=== PATIENT | female | born 1975 | race Caucasian/White ===

== ENCOUNTER 2018-07-06 09:11 | Day surgery (SDC) | payer MEDICARE ==
[2018-07-06] MEDS ORDERED: Depo-Medrol 40 MG/ML IM ONE (09:12)
[2018-07-06] MEDS ORDERED: DIPRIVAN 200 MG/20 ML IV ONE (09:12)
[2018-07-06] MEDS ORDERED: Xylocaine-Mpf 2% 5 Ml Vial IJ ONE (09:12)
--- NOTE | 2018-07-06 12:13 | XRAY ---
Indication: T9-T12 MBB. Intraoperative fluoroscopy was provided for 17 seconds. Single digital spot image submitted for interpretation demonstrates bilateral posterior spinal needle tips projecting over the expected course of the T9-T12 nerve roots. Correlate with intraoperative findings/report.
--- NOTE | 2018-07-06 12:15 | XRAY ---
17 seconds fluoroscopy time in surgery for T9-T12 MBB.
[2018-07-06] MEDS ORDERED: Lactated Ringers 1,000 ML IV ONE (14:30)
== END 2018-07-06 11:30 | disposition home or self-care (01) ==
LOC: SDC-PAIN 09:11
PROVIDERS: ATTEND Psychiatry & Neurology Pain Medicine
DX: M47.814 Spondylosis without myelopathy or radiculopathy, thoracic region (principal)
CPT/HCPCS: 64490; 64491; 64492; 72020; 77003; 82962; J1030; J2704

== ENCOUNTER 2018-08-03 08:19 | Day surgery (SDC) | payer MEDICARE ==
[2018-08-03] MEDS ORDERED: Ketamine HCl 50 MG/ML IJ ONE (08:20)
[2018-08-03] MEDS ORDERED: DIPRIVAN 200 MG/20 ML IV ONE (08:20)
[2018-08-03] MEDS ORDERED: Xylocaine 1% Vial 30 ML PF IJ ONE (08:20)
[2018-08-03] MEDS ORDERED: Depo-Medrol 40 MG/ML IM ONE (08:20)
[2018-08-03] MEDS ORDERED: Xylocaine-Mpf 2% 5 Ml Vial IJ ONE (08:20)
--- NOTE | 2018-08-03 11:50 | XRAY ---
Indication: Bilateral T9-T12 MBB. Intraoperative fluoroscopy was provided for 19 seconds. Single digital spot image submitted for interpretation demonstrates posterior spinal needle tips projecting over the expected course of the left and right T9-T12 nerve roots. Correlate with intraoperative findings/report.
--- NOTE | 2018-08-03 11:57 | XRAY ---
19 seconds fluoroscopy time in surgery for T9-T12 MBB.
[2018-08-03] MEDS ORDERED: Lactated Ringers 2,000 ML IV ONE (14:26)
== END 2018-08-03 10:07 | disposition home or self-care (01) ==
LOC: SDC-PAIN 08:19
PROVIDERS: ATTEND Psychiatry & Neurology Pain Medicine
DX: M47.814 Spondylosis without myelopathy or radiculopathy, thoracic region (principal); E11.9 Type 2 diabetes mellitus without complications; J45.909 Unspecified asthma, uncomplicated; Z79.899 Other long term (current) drug therapy
CPT/HCPCS: 64490; 64491; 64492; 72020; 77002; 82962; J1030; J2001; J2704

== ENCOUNTER 2018-08-24 08:05 | Day surgery (SDC) | payer MEDICARE ==
[2018-08-24] MEDS ORDERED: Ketamine HCl 50 MG/ML IV ONE (08:06)
[2018-08-24] MEDS ORDERED: Depo-Medrol 40 MG/ML IM ONE (08:06)
[2018-08-24] MEDS ORDERED: DIPRIVAN 200 MG/20 ML IV ONE (08:06)
[2018-08-24] MEDS ORDERED: Marcaine 0.5% SDV 10 ML IJ ONE (08:06)
[2018-08-24] MEDS ORDERED: Xylocaine 1% Vial 30 ML PF IJ ONE ×2 (08:06)
[2018-08-24] MEDS ORDERED: Lactated Ringers 1,000 ML IV ONE ×2 (09:39→14:27)
--- NOTE | 2018-08-24 11:27 | XRAY ---
Indication: Left T9-T10 RFA. Intraoperative fluoroscopy was provided for 32 seconds. 2 digital spot images submitted for interpretation demonstrates posterior spinal needle tips projecting over the expected course of the left T9-T12 nerve roots. Correlate with intraoperative findings/report.
--- NOTE | 2018-08-24 11:29 | XRAY ---
32 seconds fluoroscopy time in surgery for T9-T12 left RFA..
== END 2018-08-24 10:13 | disposition home or self-care (01) ==
LOC: SDC-PAIN 08:05
PROVIDERS: ATTEND Psychiatry & Neurology Pain Medicine
DX: M47.814 Spondylosis without myelopathy or radiculopathy, thoracic region (principal); E11.9 Type 2 diabetes mellitus without complications; Z79.899 Other long term (current) drug therapy
CPT/HCPCS: 72100; 77002; J1030; J2001; J2704

== ENCOUNTER 2018-09-28 09:35 | Day surgery (SDC) | payer MEDICARE ==
[2018-09-28] MEDS ORDERED: LIDOCAINE HCL 2% 100 MG/5 ML IJ ONE (09:36)
[2018-09-28] MEDS ORDERED: Depo-Medrol 40 MG/ML IM ONE (09:36)
[2018-09-28] MEDS ORDERED: Xylocaine 1% Vial 30 ML PF IJ ONE (09:36)
[2018-09-28] MEDS ORDERED: Ketamine HCl 50 MG/ML IJ ONE (09:36)
[2018-09-28] MEDS ORDERED: DIPRIVAN 200 MG/20 ML IV ONE (09:36)
[2018-09-28] MEDS ORDERED: Marcaine 0.5% SDV 10 ML IJ ONE (09:36)
--- NOTE | 2018-09-28 12:10 | XRAY ---
20 seconds fluoroscopy time in surgery for right T9-T12 RFA.
--- NOTE | 2018-09-28 12:17 | XRAY ---
Indication: Right T9-T12 RFA. Intraoperative fluoroscopy was provided for 20 seconds. 2 digital spot images submitted for interpretation demonstrates posterior needle tips along the expected course of the right T9-T12 nerve roots. Correlate with intraoperative findings/report.
[2018-09-28] MEDS ORDERED: Lactated Ringers 1,000 ML IV ONE (17:10)
== END 2018-09-28 11:35 | disposition home or self-care (01) ==
LOC: SDC-PAIN 09:35
PROVIDERS: ATTEND Psychiatry & Neurology Pain Medicine
DX: M47.814 Spondylosis without myelopathy or radiculopathy, thoracic region (principal); Z79.899 Other long term (current) drug therapy; E11.9 Type 2 diabetes mellitus without complications; F41.9 Anxiety disorder, unspecified; J45.909 Unspecified asthma, uncomplicated; F32.9 Major depressive disorder, single episode, unspecified
CPT/HCPCS: 64633; 64634; 72072; 77002; 82962; J1030; J2001; J2704

== ENCOUNTER 2019-01-11 08:51 | Day surgery (SDC) | payer MEDICARE ==
[2019-01-11] MEDS ORDERED: Depo-Medrol 40 MG/ML IM ONE (08:52)
[2019-01-11] MEDS ORDERED: Xylocaine-Mpf 2% 5 Ml Vial IJ ONE (08:52)
[2019-01-11] MEDS ORDERED: DIPRIVAN 200 MG/20 ML IV ONE (10:14)
[2019-01-11] MEDS ORDERED: Ketamine HCl 50 MG/ML ONE (10:14)
[2019-01-11] MEDS ORDERED: Lactated Ringers 1,000 ML IV ONE (11:16)
--- NOTE | 2019-01-11 16:34 | XRAY ---
14 seconds fluoroscopy time in surgery for bilateral L4-S1 MBB.
--- NOTE | 2019-01-13 10:18 | XRAY ---
Indication: Bilateral L4-S1 MBB. Intraoperative fluoroscopy was provided for 14 seconds. Single digital spot image submitted for interpretation demonstrates posterior needle tips projecting over the expected course of the left and right L4-S1 nerve roots. Correlate with intraoperative findings/report.
== END 2019-01-11 10:36 | disposition home or self-care (01) ==
LOC: SDC-PAIN 08:51
PROVIDERS: ATTEND Psychiatry & Neurology Pain Medicine
DX: M47.816 Spondylosis without myelopathy or radiculopathy, lumbar region (principal); E11.9 Type 2 diabetes mellitus without complications; F41.8 Other specified anxiety disorders; Z79.899 Other long term (current) drug therapy
CPT/HCPCS: 64494; 64495; 72020; 77002; 82962; J1030; J2704

== ENCOUNTER 2019-02-08 09:10 | Day surgery (SDC) | payer MEDICARE ==
[2019-02-08] MEDS ORDERED: Marcaine 0.5% SDV 10 ML IJ ONE (09:11)
[2019-02-08] MEDS ORDERED: Depo-Medrol 40 MG/ML IM ONE (09:11)
[2019-02-08] MEDS ORDERED: DIPRIVAN 200 MG/20 ML IV ONE (10:29)
[2019-02-08] MEDS ORDERED: Ketamine HCl 50 MG/ML ONE (10:30)
--- NOTE | 2019-02-08 12:13 | XRAY ---
Indication: Bilateral L4-S1 MBB. Intraoperative fluoroscopy was provided for 7 seconds. Single digital spot image submitted for interpretation demonstrates posterior needle tips projecting over the expected course of the left and right L4-S1 nerve roots. Correlate with intraoperative findings/report.
--- NOTE | 2019-02-08 13:04 | XRAY ---
7 seconds fluoroscopy time in surgery for bilateral L4-S1 MBB.
[2019-02-08] MEDS ORDERED: Lactated Ringers 1,000 ML IV ONE (13:20)
== END 2019-02-08 10:53 | disposition home or self-care (01) ==
LOC: SDC-PAIN 09:10
PROVIDERS: ATTEND Psychiatry & Neurology Pain Medicine
DX: M47.816 Spondylosis without myelopathy or radiculopathy, lumbar region (principal); E11.9 Type 2 diabetes mellitus without complications; F41.8 Other specified anxiety disorders; J45.909 Unspecified asthma, uncomplicated; Z79.899 Other long term (current) drug therapy
CPT/HCPCS: 64493; 64494; 72020; 77002; J1030; J2704

== ENCOUNTER 2019-03-08 08:12 | Day surgery (SDC) | payer MEDICARE ==
[2019-03-08] MEDS ORDERED: Marcaine 0.5% SDV 10 ML IJ ONE (08:13)
[2019-03-08] MEDS ORDERED: Depo-Medrol 40 MG/ML IM ONE (08:13)
[2019-03-08] MEDS ORDERED: Xylocaine 1% Vial 30 ML PF IJ ONE (08:13)
[2019-03-08] MEDS ORDERED: DIPRIVAN 200 MG/20 ML IV ONE (09:21)
[2019-03-08] MEDS ORDERED: Ketamine HCl 50 MG/ML ONE (09:21)
[2019-03-08] MEDS ORDERED: Lactated Ringers 1,000 ML IV ONE (13:56)
--- NOTE | 2019-03-08 16:26 | XRAY ---
10 seconds fluoroscopy time in surgery for left L4-S1 RFA.
--- NOTE | 2019-03-09 06:23 | XRAY ---
Indication: Left L4-S1 RFA. Intraoperative fluoroscopy was utilized for 10 seconds. AP and lateral digital spot films reveal a posterior needle tips projected over the expected course of the left L3, L4, and L5 nerve roots. Correlate with intraoperative findings/report.
== END 2019-03-08 09:55 | disposition home or self-care (01) ==
LOC: SDC-PAIN 08:12
PROVIDERS: ATTEND Psychiatry & Neurology Pain Medicine
DX: M47.816 Spondylosis without myelopathy or radiculopathy, lumbar region (principal); E11.9 Type 2 diabetes mellitus without complications; J45.909 Unspecified asthma, uncomplicated; F41.8 Other specified anxiety disorders; Z79.899 Other long term (current) drug therapy
CPT/HCPCS: 64635; 64636; 72100; 77002; 82962; J1030; J2001; J2704; Q9966

== ENCOUNTER 2019-04-05 08:12 | Day surgery (SDC) | payer MEDICARE ==
[2019-04-05] MEDS ORDERED: Depo-Medrol 40 MG/ML IM ONE (08:13)
[2019-04-05] MEDS ORDERED: Xylocaine 1% Vial 30 ML PF IJ ONE (08:13)
[2019-04-05] MEDS ORDERED: Marcaine 0.5% SDV 10 ML IJ ONE (08:13)
[2019-04-05] MEDS ORDERED: Ketamine HCl 50 MG/ML ONE (08:53)
[2019-04-05] MEDS ORDERED: DIPRIVAN 200 MG/20 ML IV ONE (08:53)
--- NOTE | 2019-04-05 10:21 | XRAY ---
Indication: Right L4-S1 RFA. Intraoperative fluoroscopy was provided for 17 seconds. 4 digital spot images submitted for interpretation demonstrates posterior needle tips projecting over the expected course of the right L4-S1 nerve roots. Correlate with intraoperative findings/report.
--- NOTE | 2019-04-05 12:30 | XRAY ---
17 seconds fluoroscopy time in surgery for left L4-S1 RFA.
[2019-04-05] MEDS ORDERED: Lactated Ringers 1,000 ML IV ONE (14:32)
== END 2019-04-05 09:58 | disposition home or self-care (01) ==
LOC: SDC-PAIN 08:12
PROVIDERS: ATTEND Psychiatry & Neurology Pain Medicine
DX: M47.816 Spondylosis without myelopathy or radiculopathy, lumbar region (principal); E11.9 Type 2 diabetes mellitus without complications; F41.9 Anxiety disorder, unspecified
CPT/HCPCS: 64635; 64636; 72100; 77002; 82962; J1030; J2001; J2704

== ENCOUNTER 2019-05-03 08:52 | Day surgery (SDC) | payer MEDICARE ==
[2019-05-03] MEDS ORDERED: Marcaine 0.5% SDV 10 ML IJ ONE (08:53)
[2019-05-03] MEDS ORDERED: Depo-Medrol 40 MG/ML IM ONE (08:53)
[2019-05-03] MEDS ORDERED: Ketamine HCl 50 MG/ML ONE (09:58)
[2019-05-03] MEDS ORDERED: DIPRIVAN 200 MG/20 ML IV ONE (09:58)
--- NOTE | 2019-05-03 11:12 | XRAY ---
Indication: Right SI joint injection. Intraoperative fluoroscopy was provided for 7 seconds. 2 digital spot images submitted for interpretation demonstrates posterior needle tip projecting over the inferior right SI joint. Correlate with intraoperative findings/report.
--- NOTE | 2019-05-03 12:27 | XRAY ---
7 seconds fluoroscopy time in surgery for right SI joint injection.
[2019-05-03] MEDS ORDERED: Lactated Ringers 1,000 ML IV ONE (16:16)
== END 2019-05-03 10:30 | disposition home or self-care (01) ==
LOC: SDC-PAIN 08:52
PROVIDERS: ATTEND Psychiatry & Neurology Pain Medicine
DX: M46.1 Sacroiliitis, not elsewhere classified (principal); E11.9 Type 2 diabetes mellitus without complications; F41.8 Other specified anxiety disorders; Z79.899 Other long term (current) drug therapy
CPT/HCPCS: 72020; 77002; J1030; J2704

== ENCOUNTER 2019-05-24 11:36 | Day surgery (SDC) | payer MEDICARE ==
[2019-05-24] MEDS ORDERED: Depo-Medrol 40 MG/ML IM ONE (11:37)
[2019-05-24] MEDS ORDERED: Marcaine 0.5% SDV 10 ML IJ ONE (11:37)
[2019-05-24] MEDS ORDERED: Ketamine HCl 50 MG/ML ONE (12:22)
[2019-05-24] MEDS ORDERED: DIPRIVAN 200 MG/20 ML IV ONE (12:22)
--- NOTE | 2019-05-24 14:28 | XRAY ---
Indication: Right SI joint injection. Intraoperative fluoroscopy was provided for 9 seconds. 2 digital spot images submitted for interpretation demonstrates posterior needle tip projecting over the inferior right SI joint. Correlate with intraoperative findings/report.
--- NOTE | 2019-05-24 14:42 | XRAY ---
9 seconds fluoroscopy time in surgery for right SI joint injection.
[2019-05-24] MEDS ORDERED: Lactated Ringers 1,000 ML IV ONE (17:04)
== END 2019-05-24 12:47 | disposition home or self-care (01) ==
LOC: SDC-PAIN 11:36
PROVIDERS: ATTEND Psychiatry & Neurology Pain Medicine
DX: M46.1 Sacroiliitis, not elsewhere classified (principal); E11.9 Type 2 diabetes mellitus without complications; F41.8 Other specified anxiety disorders; J45.909 Unspecified asthma, uncomplicated; Z79.899 Other long term (current) drug therapy
CPT/HCPCS: 72020; 77002; 82962; G0260; 27096; J1030; J2704

== ENCOUNTER 2019-07-05 08:09 | Day surgery (SDC) | payer MEDICARE ==
[2019-07-05] MEDS ORDERED: Depo-Medrol 40 MG/ML IM ONE (08:10)
[2019-07-05] MEDS ORDERED: Xylocaine 1% Vial 30 ML PF IJ ONE (08:10)
[2019-07-05] MEDS ORDERED: Marcaine 0.5% SDV 10 ML IJ ONE (08:10)
[2019-07-05] MEDS ORDERED: DIPRIVAN 200 MG/20 ML IV ONE ×2 (08:55→09:29)
[2019-07-05] MEDS ORDERED: Ketamine HCl 50 MG/ML ONE (08:56)
[2019-07-05] MEDS ORDERED: Lactated Ringers 1,000 ML IV ONE ×2 (09:26→13:30)
--- NOTE | 2019-07-05 12:01 | XRAY ---
Indication: Right SI joints RFA. Intraoperative fluoroscopy was provided for 46 seconds. 2 digital spot images submitted for interpretation demonstrates 4 posterior needle tips projecting over the right sacrum/sacral nerve roots. Correlate with intraoperative findings/report.
--- NOTE | 2019-07-05 13:06 | XRAY ---
46 seconds fluoroscopy time in surgery for right SI joint injection.
== END 2019-07-05 09:51 | disposition home or self-care (01) ==
LOC: SDC-PAIN 08:09
PROVIDERS: ATTEND Psychiatry & Neurology Pain Medicine
DX: M46.1 Sacroiliitis, not elsewhere classified (principal); E11.9 Type 2 diabetes mellitus without complications; F41.8 Other specified anxiety disorders; J45.909 Unspecified asthma, uncomplicated; Z86.711 Personal history of pulmonary embolism
CPT/HCPCS: 64625; 72202; 77002; 82962; J1030; J2001; J2704

== ENCOUNTER 2019-08-16 08:26 | Day surgery (SDC) | payer MEDICARE ==
[2019-08-16] MEDS ORDERED: Marcaine 0.5% SDV 10 ML IJ ONE (08:27)
[2019-08-16] MEDS ORDERED: Depo-Medrol 40 MG/ML IM ONE (08:27)
[2019-08-16] MEDS ORDERED: DIPRIVAN 200 MG/20 ML IV ONE (09:50)
[2019-08-16] MEDS ORDERED: Ketamine HCl 50 MG/ML ONE (09:50)
--- NOTE | 2019-08-16 10:38 | XRAY ---
8 seconds fluoroscopy time in surgery for left SI joint injection.
--- NOTE | 2019-08-16 10:38 | XRAY ---
Indication: Left SI joint injection. Intraoperative fluoroscopy was provided for 8 seconds. 2 digital spot images submitted for interpretation demonstrates posterior needle tip projecting over the inferior left SI joint. Correlate with intraoperative findings/report.
[2019-08-16] MEDS ORDERED: Lactated Ringers 1,000 ML IV ONE (13:40)
== END 2019-08-16 10:09 | disposition home or self-care (01) ==
LOC: SDC-PAIN 08:26
PROVIDERS: ATTEND Psychiatry & Neurology Pain Medicine
DX: M46.1 Sacroiliitis, not elsewhere classified (principal); E11.9 Type 2 diabetes mellitus without complications; F41.8 Other specified anxiety disorders; J45.909 Unspecified asthma, uncomplicated; Z86.711 Personal history of pulmonary embolism; Z79.899 Other long term (current) drug therapy
CPT/HCPCS: 72020; 77002; 82962; G0260; 27096; J1030; J2704

== ENCOUNTER 2019-10-18 08:49 | Day surgery (SDC) | payer MEDICARE ==
[2019-10-18] MEDS ORDERED: Depo-Medrol 40 MG/ML IM ONE (08:50)
[2019-10-18] MEDS ORDERED: Marcaine 0.5% SDV 10 ML IJ ONE (08:50)
[2019-10-18] MEDS ORDERED: DIPRIVAN 200 MG/20 ML IV ONE (10:02)
[2019-10-18] MEDS ORDERED: Ketamine HCl 50 MG/ML ONE (10:02)
--- NOTE | 2019-10-18 10:39 | XRAY ---
Indication: Left SI joint injection. Intraoperative fluoroscopy was provided for 6 seconds. 2 digital spot images submitted for interpretation demonstrates posterior needle tip projecting over the inferior left SI joint. Correlate with intraoperative findings/report.
--- NOTE | 2019-10-18 11:19 | XRAY ---
6 seconds fluoroscopy time in surgery for left SI joint injection.
[2019-10-18] MEDS ORDERED: Lactated Ringers 1,000 ML IV ONE (13:48)
== END 2019-10-18 10:25 | disposition home or self-care (01) ==
LOC: SDC-PAIN 08:49
PROVIDERS: ATTEND Psychiatry & Neurology Pain Medicine
DX: M46.1 Sacroiliitis, not elsewhere classified (principal); E11.9 Type 2 diabetes mellitus without complications; F41.8 Other specified anxiety disorders; E03.9 Hypothyroidism, unspecified; Z86.711 Personal history of pulmonary embolism; Z79.899 Other long term (current) drug therapy
CPT/HCPCS: 72020; 77002; 82962; G0260; 27096; J1030; J2704

== ENCOUNTER 2019-11-29 08:21 | Day surgery (SDC) | payer MEDICARE ==
[2019-11-29] MEDS ORDERED: Depo-Medrol 40 MG/ML IM ONE (08:22)
[2019-11-29] MEDS ORDERED: Marcaine 0.5% SDV 10 ML IM ONE (08:22)
[2019-11-29] MEDS ORDERED: Xylocaine 1% Vial 30 ML PF IJ ONE (08:22)
[2019-11-29] MEDS ORDERED: DIPRIVAN 200 MG/20 ML IV ONE (08:23)
[2019-11-29] MEDS ORDERED: Ketamine HCl 50 MG/ML ONE (08:23)
--- NOTE | 2019-11-29 12:28 | XRAY ---
Indication: Left SI joint RFA. Intraoperative fluoroscopy was provided for 54 seconds. 2 digital spot images submitted for interpretation demonstrates 4 posterior needle tips projecting over the expected course of the left sacral nerve roots. Correlate with intraoperative findings/report.
--- NOTE | 2019-11-29 14:26 | XRAY ---
54 seconds of fluoroscopy was used in surgery for a left SI joint RFA.
[2019-11-29] MEDS ORDERED: Lactated Ringers 1,000 ML IV ONE (14:51)
== END 2019-11-29 09:50 | disposition home or self-care (01) ==
LOC: SDC-PAIN 08:21
PROVIDERS: ATTEND Psychiatry & Neurology Pain Medicine
DX: M46.1 Sacroiliitis, not elsewhere classified (principal); M47.816 Spondylosis without myelopathy or radiculopathy, lumbar region; E11.9 Type 2 diabetes mellitus without complications; J45.909 Unspecified asthma, uncomplicated; F41.8 Other specified anxiety disorders; Z79.899 Other long term (current) drug therapy
CPT/HCPCS: 64625; 72202; 77002; 82962; J1030; J2001; J2704

== ENCOUNTER 2022-02-04 07:15 | Day surgery (SDC) | payer BC, MEDICARE ==
[2022-02-04] MEDS ORDERED: Xylocaine 1% Vial 30 ML PF IJ ONE (07:16)
[2022-02-04] MEDS ORDERED: Marcaine Mpf 0.5% Vial 30 Ml IJ ONE (07:16)
[2022-02-04] MEDS ORDERED: Depo-Medrol 40 MG/ML IM ONE (07:16)
[2022-02-04] MEDS ORDERED: DIPRIVAN 200 MG/20 ML IV ONE (09:27)
[2022-02-04] MEDS ORDERED: Lactated Ringers 1,000 ML IV ONE (10:57)
--- NOTE | 2022-02-04 17:31 | XRAY ---
Indication: Left L4-S1 RFA. Intraoperative fluoroscopy provided for 21 seconds. 3 digital spot image submitted for interpretation demonstrates posterior needle tips projecting over the expected left L4-S1 nerve roots. Correlate with intraoperative findings/report.
--- NOTE | 2022-02-04 17:44 | XRAY ---
21 seconds of fluoroscopy was used in surgery for a left L4-S1 RFA.
== END 2022-02-04 10:00 | disposition home or self-care (01) ==
LOC: SDC-PAIN 07:15
PROVIDERS: ATTEND Psychiatry & Neurology Pain Medicine
DX: M47.816 Spondylosis without myelopathy or radiculopathy, lumbar region (principal); E11.9 Type 2 diabetes mellitus without complications; Z79.899 Other long term (current) drug therapy
CPT/HCPCS: 64635; 64636; 72100; 77002; 82947; J1030; J2001; J2704

== ENCOUNTER 2022-02-11 07:03 | Day surgery (SDC) | payer BC, MEDICARE ==
[2022-02-11] MEDS ORDERED: XYLOCAINE-MPF 1% 5ML SDV IJ ONE (07:04)
[2022-02-11] MEDS ORDERED: Marcaine Mpf 0.5% Vial 30 Ml IJ ONE (07:04)
[2022-02-11] MEDS ORDERED: Depo-Medrol 40 MG/ML IM ONE (07:04)
[2022-02-11] MEDS ORDERED: DIPRIVAN 200 MG/20 ML IV ONE (08:11)
--- NOTE | 2022-02-11 10:01 | XRAY ---
Indication: Right L4-S1 RFA. Intraoperative fluoroscopy provided for 29 seconds. 3 digital spot images submitted for interpretation demonstrates posterior needle tips projecting over the expected right L4-S1 nerve roots. Correlate with intraoperative findings/report.
--- NOTE | 2022-02-11 10:32 | XRAY ---
29 seconds of fluoroscopy was used in surgery for a right L4-S1 RFA.
[2022-02-11] MEDS ORDERED: Lactated Ringers 1,000 ML IV ONE (10:57)
== END 2022-02-11 08:45 | disposition home or self-care (01) ==
LOC: SDC-PAIN 07:03
PROVIDERS: ATTEND Psychiatry & Neurology Pain Medicine
DX: M47.816 Spondylosis without myelopathy or radiculopathy, lumbar region (principal); E11.9 Type 2 diabetes mellitus without complications; Z79.899 Other long term (current) drug therapy
CPT/HCPCS: 64635; 64636; 72100; 77002; 82947; J1030; J2704

== ENCOUNTER 2022-11-18 06:59 | Day surgery (SDC) | payer BC, MEDICARE ==
[2022-11-18] MEDS ORDERED: Depo-Medrol 40 MG/ML IM ONE (07:00)
[2022-11-18] MEDS ORDERED: LIDOCAINE HCL 1% 50 MG/5 ML VL PF IJ ONE (07:00)
[2022-11-18] MEDS ORDERED: BUPIVACAINE 0.5% VIAL IJ ONE (07:00)
[2022-11-18] MEDS ORDERED: DIPRIVAN 200 MG/20 ML IV ONE (08:08)
[2022-11-18] MEDS ORDERED: Lactated Ringers 1,000 ML IV ONE (14:25)
--- NOTE | 2022-11-18 19:08 | XRAY ---
Indication: Left L4-S1 RFA. Intraoperative fluoroscopy provided for 23 seconds. 4 digital spot image submitted for interpretation demonstrates posterior needle tips projecting over the expected left L4-S1 nerve roots. Correlate with intraoperative findings/report.
--- NOTE | 2022-11-18 19:25 | XRAY ---
23 seconds of fluoroscopy was used in surgery for a left L4-S1 RFA.
== END 2022-11-18 08:40 | disposition home or self-care (01) ==
LOC: SDC-PAIN 06:59
PROVIDERS: ATTEND Psychiatry & Neurology Pain Medicine
DX: M47.817 Spondylosis without myelopathy or radiculopathy, lumbosacral region (principal); E11.9 Type 2 diabetes mellitus without complications; Z79.899 Other long term (current) drug therapy
CPT/HCPCS: 64635; 64636; 72100; 77002; 82947; J1030; J2001; J2704; Q9966

== ENCOUNTER 2022-11-25 06:54 | Day surgery (SDC) | payer BC, MEDICARE ==
[2022-11-25] MEDS ORDERED: DIPRIVAN 200 MG/20 ML IV ONE (07:58)
--- NOTE | 2022-11-25 10:07 | XRAY ---
20 seconds of fluoroscopy was used in surgery for a right L4-S1 RFA.
--- NOTE | 2022-11-25 10:07 | XRAY ---
Indication: Right L4-S1 RFA. Intraoperative fluoroscopy provided for 20 seconds. 4 digital spot image submitted for interpretation demonstrates posterior needle tips projecting over the expected right L4-S1 nerve roots. Correlate with intraoperative findings/report.
[2022-11-25] MEDS ORDERED: Lactated Ringers 1,000 ML IV ONE (13:39)
== END 2022-11-25 08:33 | disposition home or self-care (01) ==
LOC: SDC-PAIN 06:54
PROVIDERS: ATTEND Psychiatry & Neurology Pain Medicine
DX: M47.816 Spondylosis without myelopathy or radiculopathy, lumbar region (principal); E11.9 Type 2 diabetes mellitus without complications; Z79.899 Other long term (current) drug therapy
CPT/HCPCS: 64635; 64636; 72100; 77002; 82947; J2704

== ENCOUNTER 2023-10-27 07:57 | Day surgery (SDC) | payer BC, MEDICARE ==
[2023-10-27] MEDS ORDERED: BUPIVACAINE 0.5% VIAL IJ ONE (07:58)
[2023-10-27] MEDS ORDERED: Depo-Medrol 40 MG/ML IM ONE (07:58)
[2023-10-27] MEDS ORDERED: Pepcid 20 MG VIAL IV ONE (08:36)
[2023-10-27] MEDS ORDERED: Lactated Ringers 1,000 ML IV ONE (09:50)
[2023-10-27] MEDS ORDERED: DIPRIVAN 200 MG/20 ML IV ONE (09:57)
--- NOTE | 2023-10-27 12:33 | XRAY ---
Indication: Bilateral SI joint injection. Intraoperative fluoroscopy provided for 19 seconds. 2 digital spot image submitted for interpretation demonstrates posterior needle tips projecting over the left and right SI joint. Small amount of contrast injected for needle tip placement. Correlate with interoperative findings/report.
--- NOTE | 2023-10-27 12:35 | XRAY ---
19 seconds of fluoroscopy was used in surgery for a bilateral sacroiliac joint injection.
== END 2023-10-27 10:25 | disposition home or self-care (01) ==
LOC: SDC-PAIN 07:57
PROVIDERS: ATTEND Psychiatry & Neurology Pain Medicine
DX: M46.1 Sacroiliitis, not elsewhere classified (principal); E11.9 Type 2 diabetes mellitus without complications
CPT/HCPCS: 27096; 72202; 77002; 82947; J1010; J2704; Q9966; G0260

== ENCOUNTER 2024-05-17 07:39 | Day surgery (SDC) | payer BC, MEDICARE ==
[2024-05-17] MEDS ORDERED: Depo-Medrol 40 MG/ML IM ONE (07:40)
[2024-05-17] MEDS ORDERED: Xylocaine-Mpf 2% 5 Ml Vial IJ ONE (07:40)
[2024-05-17] MEDS ORDERED: DIPRIVAN 200 MG/20 ML IV ONE (09:04)
--- NOTE | 2024-05-17 18:46 | XRAY ---
Indication: Bilateral T10-T12 MBB. Intraoperative fluoroscopy provided for 22 seconds. Single digital spot image submitted for interpretation demonstrates posterior needle tips projecting over the expected left and right T10-T12 nerve roots. Correlate with intraoperative findings/report.
--- NOTE | 2024-05-17 19:22 | XRAY ---
22 seconds of fluoroscopy was used in surgery for a bilateral T10-T12 MBB.
== END 2024-05-17 09:30 | disposition home or self-care (01) ==
LOC: SDC-PAIN 07:39
PROVIDERS: ATTEND Psychiatry & Neurology Pain Medicine
DX: M47.814 Spondylosis without myelopathy or radiculopathy, thoracic region (principal); E11.9 Type 2 diabetes mellitus without complications
CPT/HCPCS: 64491; 64492; 72020; 77002; 82947; J2704

== ENCOUNTER 2024-07-12 07:44 | Day surgery (SDC) | payer MEDICARE ==
[2024-07-12] MEDS ORDERED: BUPIVACAINE 0.5% VIAL IJ ONE (07:45)
[2024-07-12] MEDS ORDERED: Depo-Medrol 40 MG/ML IM ONE (07:45)
[2024-07-12] MEDS ORDERED: propofoL IV ONE (08:39)
--- NOTE | 2024-07-12 10:24 | XRAY ---
Indication: Bilateral T10-T12 MBB. Intraoperative fluoroscopy provided for 10 seconds. Single digital spot image submitted for interpretation demonstrates posterior needle tips projecting over expected left and right T10-T12 nerve roots. Correlate with intraoperative findings/report.
--- NOTE | 2024-07-12 11:01 | XRAY ---
10 seconds of fluoroscopy was used in surgery for a bilateral T10-T12 MBB.
== END 2024-07-12 09:13 | disposition home or self-care (01) ==
LOC: SDC-PAIN 07:44
PROVIDERS: ATTEND Psychiatry & Neurology Pain Medicine
DX: M47.814 Spondylosis without myelopathy or radiculopathy, thoracic region (principal); E11.9 Type 2 diabetes mellitus without complications
CPT/HCPCS: 64490; 64491; 72020; 77002; 82947; J2704

== ENCOUNTER 2024-08-16 07:40 | Day surgery (SDC) | payer MEDICARE ==
[2024-08-16] MEDS ORDERED: LIDOCAINE HCL 1% AMPUL 5 ML IJ ONE (07:41)
[2024-08-16] MEDS ORDERED: BUPIVACAINE 0.5% VIAL IJ ONE (07:41)
[2024-08-16] MEDS ORDERED: Depo-Medrol 40 MG/ML IM ONE (07:41)
[2024-08-16] MEDS ORDERED: Lactated Ringers 500 ML IV ONE (07:46)
[2024-08-16] MEDS ORDERED: propofoL IV ONE (08:55)
--- NOTE | 2024-08-16 09:57 | XRAY ---
Indication: Right T10-T12 RFA. Intraoperative fluoroscopy provided for 19 seconds. 3 digital spot images submitted for interpretation demonstrates posterior needle tips projecting over expected right T10-T12 nerve roots. Correlate with intraoperative findings/report.
--- NOTE | 2024-08-16 10:56 | XRAY ---
19 seconds of fluoroscopy was used in surgery for a right T10-T12 RFA.
== END 2024-08-16 09:24 | disposition home or self-care (01) ==
LOC: SDC-PAIN 07:40
PROVIDERS: ATTEND Psychiatry & Neurology Pain Medicine
DX: M47.816 Spondylosis without myelopathy or radiculopathy, lumbar region (principal); E11.9 Type 2 diabetes mellitus without complications
CPT/HCPCS: 64633; 64634; 72072; 77002; 82947; J2704

== ENCOUNTER 2024-08-23 07:53 | Day surgery (SDC) | payer MEDICARE ==
[2024-08-23] MEDS ORDERED: BUPIVACAINE 0.5% VIAL IJ ONE (07:54)
[2024-08-23] MEDS ORDERED: LIDOCAINE HCL 1% AMPUL 5 ML IJ ONE (07:54)
[2024-08-23] MEDS ORDERED: Depo-Medrol 40 MG/ML IM ONE (07:54)
[2024-08-23] MEDS ORDERED: Lactated Ringers 500 ML IV ONE (08:15)
[2024-08-23] MEDS ORDERED: Reglan 10 MG/2 ML ONE (08:23)
[2024-08-23] MEDS ORDERED: Pepcid 20 MG VIAL IV ONE (08:23)
[2024-08-23] MEDS ORDERED: propofoL IV ONE (08:53)
--- NOTE | 2024-08-23 10:20 | XRAY ---
Indication: Left T10-T12 RFA. Intraoperative fluoroscopy provided for 13 seconds. 2 digital spot image submitted for interpretation demonstrates posterior needle tips projecting over expected left T10-T12 nerve roots. Correlate with intraoperative findings/report.
--- NOTE | 2024-08-23 10:35 | XRAY ---
13 seconds of fluoroscopy was used in surgery for a left T10-T12 RFA.
== END 2024-08-23 09:25 | disposition home or self-care (01) ==
LOC: SDC-PAIN 07:53
PROVIDERS: ATTEND Psychiatry & Neurology Pain Medicine
DX: M47.816 Spondylosis without myelopathy or radiculopathy, lumbar region (principal); E11.9 Type 2 diabetes mellitus without complications
CPT/HCPCS: 64490; 64491; 64633; 64634; 72072; 77002; 82947; J2704

== ENCOUNTER 2024-09-20 08:08 | Day surgery (SDC) | payer MEDICARE ==
[2024-09-20] MEDS ORDERED: LIDOCAINE HCL 2% 100 MG/5 ML IJ ONE (08:09)
[2024-09-20] MEDS ORDERED: Depo-Medrol 40 MG/ML IM ONE (08:09)
[2024-09-20] MEDS ORDERED: Pepcid 20 MG VIAL IV ONE (08:21)
[2024-09-20] MEDS ORDERED: Reglan 10 MG/2 ML ONE (08:21)
[2024-09-20] MEDS ORDERED: propofoL IV ONE (09:31)
--- NOTE | 2024-09-20 11:30 | XRAY ---
Indication: Bilateral L1-L3 MBB. Intraoperative fluoroscopy provided for 14 seconds. Single digital spot image submitted for interpretation demonstrates posterior needle tips projecting over expected left and right L1-L3 nerve roots. Correlate with intraoperative findings/report.
--- NOTE | 2024-09-20 12:13 | XRAY ---
14 seconds of fluoroscopy used in surgery for a bilateral L1-L3 MBB.
== END 2024-09-20 10:02 | disposition home or self-care (01) ==
LOC: SDC-PAIN 08:08
PROVIDERS: ATTEND Psychiatry & Neurology Pain Medicine
DX: M47.817 Spondylosis without myelopathy or radiculopathy, lumbosacral region (principal); E11.9 Type 2 diabetes mellitus without complications
CPT/HCPCS: 64493; 64494; 72020; 82947; J2704

== ENCOUNTER 2024-09-28 07:37 | Day surgery (SDC) | payer MEDICARE ==
[2024-09-28] MEDS ORDERED: Depo-Medrol 40 MG/ML IM ONE (07:38)
[2024-09-28] MEDS ORDERED: BUPIVACAINE 0.5% VIAL IJ ONE (07:38)
[2024-09-28] MEDS ORDERED: propofoL IV ONE (09:22)
--- NOTE | 2024-09-28 19:24 | XRAY ---
15 seconds of fluoroscopy was used in surgery for a bilateral L1-L3 MBB.
--- NOTE | 2024-09-28 19:29 | XRAY ---
Indication: Bilateral L1-L3 MBB. Intraoperative fluoroscopy provided for 15 seconds. Single digital spot image submitted for interpretation demonstrates posterior needle tips projecting over expected left and right L1-L3 nerve roots. Correlate with intraoperative findings/report.
== END 2024-09-28 09:45 | disposition home or self-care (01) ==
LOC: SDC-PAIN 07:37
PROVIDERS: ATTEND Psychiatry & Neurology Pain Medicine
DX: M47.817 Spondylosis without myelopathy or radiculopathy, lumbosacral region (principal); E11.9 Type 2 diabetes mellitus without complications
CPT/HCPCS: 64493; 64494; 72020; 82947; J2704

== ENCOUNTER 2024-10-18 07:49 | Day surgery (SDC) | payer MEDICARE ==
[2024-10-18] MEDS ORDERED: LIDOCAINE HCL 1% 50 MG/5 ML VL IJ ONE (07:50)
[2024-10-18] MEDS ORDERED: BUPIVACAINE 0.5% VIAL IJ ONE (07:50)
[2024-10-18] MEDS ORDERED: methylPREDNISolone acetate IM ONE (07:50)
[2024-10-18] MEDS ORDERED: Lactated Ringers 1,000 ML IV ONE (09:10)
[2024-10-18] MEDS ORDERED: propofoL IV ONE (09:25)
--- NOTE | 2024-10-18 10:56 | XRAY ---
Indication: Left L1-L3 RFA. Intraoperative fluoroscopy provided for 17 seconds. 5 digital spot images submitted for interpretation demonstrates posterior needle tips projecting over expected left L1-L3 nerve roots. Correlate with intraoperative findings/report.
--- NOTE | 2024-10-18 11:02 | XRAY ---
17 seconds of fluoroscopy was used in surgery for a left L1-L3 RFA.
== END 2024-10-18 09:54 | disposition home or self-care (01) ==
LOC: SDC-PAIN 07:49
PROVIDERS: ATTEND Psychiatry & Neurology Pain Medicine
DX: M47.817 Spondylosis without myelopathy or radiculopathy, lumbosacral region (principal); E11.9 Type 2 diabetes mellitus without complications
CPT/HCPCS: 64635; 64636; 72100; 82947; J1010; J2704

== ENCOUNTER 2024-10-25 07:47 | Day surgery (SDC) | payer MEDICARE ==
[2024-10-25] MEDS ORDERED: BUPIVACAINE 0.5% VIAL IJ ONE (07:48)
[2024-10-25] MEDS ORDERED: methylPREDNISolone acetate IM ONE (07:48)
[2024-10-25] MEDS ORDERED: LIDOCAINE HCL 1% 50 MG/5 ML VL IJ ONE (07:48)
[2024-10-25] MEDS ORDERED: propofoL IV ONE (09:36)
[2024-10-25] MEDS ORDERED: Lactated Ringers 1,000 ML IV ONE (10:11)
--- NOTE | 2024-10-25 21:08 | XRAY ---
Indication: Right L1-L3 RFA. Intraoperative fluoroscopy provided for 27 seconds. 6 digital spot image submitted for interpretation demonstrates posterior needle tips projecting over expected right L1-L3 nerve roots. Correlate with intraoperative findings/report.
--- NOTE | 2024-10-25 21:20 | XRAY ---
27 seconds of fluoroscopy was used in surgery for a right L1-L3 RFA.
== END 2024-10-25 10:08 | disposition home or self-care (01) ==
LOC: SDC-PAIN 07:47
PROVIDERS: ATTEND Psychiatry & Neurology Pain Medicine
DX: M47.817 Spondylosis without myelopathy or radiculopathy, lumbosacral region (principal); E11.9 Type 2 diabetes mellitus without complications
CPT/HCPCS: 64635; 64636; 72100; 82947; J1010; J2704